=== PATIENT | female | born 1970 | race Caucasian/White ===

== ENCOUNTER → 2024-10-12 | Outpatient (CLI) | payer OTHER | END | disposition home or self-care (01) | LOC: US 10-07 09:00 | PROVIDERS: ATTEND Nurse Practitioner | DX: R10.12 Left upper quadrant pain (principal) ==

== ENCOUNTER → 2025-02-01 | Outpatient (CLI) | payer OTHER | END | disposition home or self-care (01) | LOC: US 13:26 | PROVIDERS: ATTEND Nurse Practitioner | DX: M25.872 Other specified joint disorders, left ankle and foot (principal); M25.871 Other specified joint disorders, right ankle and foot; I10 Essential (primary) hypertension; L81.9 Disorder of pigmentation, unspecified; M79.605 Pain in left leg; M79.606 Pain in leg, unspecified ==